=== PATIENT | female | born 1940 | race Caucasian/White ===

== ENCOUNTER 2017-03-11 13:15 | Inpatient (IN) | payer MEDICARE, BC ==
[2017-03-11 13:40] VITALS: BMI 25.8
[2017-03-13] MEDS ORDERED: Midazolam HCl 2 mg/2 ml Vial ONE (06:31)
[2017-03-13] MEDS ORDERED: Lidocaine 1% (PF) 30 ML VIAL ONE ×2 (06:32→07:25)
[2017-03-13] MEDS ORDERED: Fentanyl 100 MCG/2 ML VIAL ONE ×2 (06:32→07:24)
[2017-03-13] MEDS ORDERED: Ropivacaine 0.2% HCl/PF 20 ML ONE (06:57)
[2017-03-13] MEDS ORDERED: Ropivacaine 0.2% 550 ML 550 ML NERVE BLCK SCH (07:12)
[2017-03-13] MEDS ORDERED: Ondansetron HCl/PF 4 MG/2 ML Vial IVP PRN ×2 (07:12→10:14)
[2017-03-13] MEDS ORDERED: traMADol HCl 50 MG TAB PO PRN ×2 (07:12)
[2017-03-13] MEDS ORDERED: Zolpidem Tartrate 5 MG TAB PO PRN (07:12)
[2017-03-13] MEDS ORDERED: Promethazine HCl 25 MG/ML VIAL IM PRN ×2 (07:12→10:14)
[2017-03-13] MEDS ORDERED: Ketorolac Tromethamine 30 MG/ML VIAL IVP PRN (07:12)
[2017-03-13] MEDS ORDERED: Fentanyl 100 MCG/2 ML VIAL IV PRN (07:13)
[2017-03-13] MEDS ORDERED: methylPREDNISolone Acetate 40 mg/ml Vial ONE (07:25)
[2017-03-13] MEDS ORDERED: Lidocaine 1% PF 5 ML VIAL ONE (07:48)
[2017-03-13] MEDS ORDERED: Propofol 200 MG/20 ML VIAL ONE (07:48)
[2017-03-13] MEDS ORDERED: Ondansetron HCl/PF 4 MG/2 ML Vial ONE (07:48)
[2017-03-13] MEDS ORDERED: ePHEDrine/0.9% NaCl/PF SYRINGE 50 mg/10 ml ONE (07:48)
[2017-03-13] MEDS ORDERED: Glycopyrrolate 0.2 MG/ML 5 ML SYRINGE ONE (07:48)
[2017-03-13] MEDS ORDERED: Ketorolac Tromethamine 30 MG/ML VIAL ONE (07:48)
[2017-03-13] MEDS ORDERED: Milk Of Magnesia 30 ML UDCUP PO PRN (10:03)
[2017-03-13] MEDS ORDERED: Methocarbamol 1 GM/10 ML VIAL SLOW IVP PRN (10:03)
[2017-03-13] MEDS ORDERED: Bisacodyl 10 MG SUPP PR PRN (10:03)
[2017-03-13] MEDS ORDERED: Acetaminophen 325 MG TAB PO PRN (10:03)
[2017-03-13] MEDS ORDERED: Promethazine HCl 25 MG/ML VIAL SLOW IVP PRN (10:14)
[2017-03-13] MEDS ORDERED: Sodium Chloride 0.9% 100 ML ONE (10:18)
--- NOTE | 2017-03-13 13:01 | OP ---
DATE OF PROCEDURE: 03/13/2017 PREOPERATIVE DIAGNOSIS: Right shoulder glenohumeral osteoarthrosis. POSTOPERATIVE DIAGNOSES: Right shoulder glenohumeral osteoarthrosis. PROCEDURE PERFORMED: Right total shoulder replacement SURGEON: Tesfaye Carrion M.D. OIL FILTERS INSPECTOR: Nelson Holman M.D. BLOOD LOSS: 350 mL. ANESTHESIA: The patient had general anesthetic. She also had a block. IMPLANTS: Implants that we placed into the right shoulder, we used a Flex system from [employer], it is a flex 4C stem, the head was a 41 mm x 15 mm high offset head and we used a small 40 keeled glenoid. The glenoid was cemented. The stem was press fit. DISPOSITION: She did go to recovery room in stable condition. INDICATIONS: A 76-year-old female who has been having significant daily pain in the right shoulder and at this time, she wanted to have her shoulder replaced. DESCRIPTION OF PROCEDURE: After all appropriate consent forms were explained and signed, she was taken to the operating room and was given a general anesthetic. Once the level of anesthesia was appropriate, she was placed in modified beach chair position with all bony prominences well-padded. She was pulled off the side so the arm could be taken off the side of the bed. Berg bag was inflated to hold her in this position. The arm was then prepped and draped in standard surgical fashion. Incision was made down through skin with a 10 blade. Bovie was used to coagulate any brisk venous bleeding. Deltopectoral interval was found and a small strip of deltoid was taken medially with the cephalic vein. We then got down to our conjoined tendon. This was swept off the underlying subscapularis. A self-retaining retractor was applied. I did take my hand and made the space between the deltoid and the cuff to remove any adhesions. Once this was done, we opened up our bicipital groove, a significant amount of fluid was removed as well as some loose bodies. The biceps was tagged. The interval was opened up and the biceps was cut out of the joint. This would then be saved for performing a biceps tenodesis at the end of the case. At this time, the subscapularis was taken off using the Bovie as well as an osteotome to pulled off a small piece of bone for later repair, four #5 Ethibonds were placed through this for later repair. At this time, the subscapularis was dissected and freed up from the underlying capsule, a small capsulotomy was performed to make the subscapularis bouncy. Once this was done, we then placed a retractor into the glenohumeral joint and using external rotation, we were able to remove the capsule circumferentially from around the humeral head. We then placed retractors and made our humeral head cut. This was removed off the back table and was felt that it would probably be a 40 or 41 head. At this time, we then went about preparing our humerus by using our canal finder by sounding and then by broaching. We ended up with a 4 stem and once this was done, we used a planer to plane out our cut and we then placed the humeral head protector on top of this. We then went ahead and gained access to our glenoid placing [place] retractors, removed circumferentially soft tissue from around the glenoid and once we had good visualization of this, we drilled a hole in our central aspect. We then hand reamed and felt that this would be a size small glenoid. Prior to starting our glenoid preparation, we did use a small tunnel hawk guides and felt that a 40 mm would be appropriate. At this time, we then drilled our superior and inferior holes, connected these with the rongeur, punched and trialed our small glenoid. It sat nicely without rocking. This was removed. The area was thoroughly irrigated and dried. Cement was mixed on the back table. We then cemented in our keeled small glenoid. This was held in place until cement dried. All excess bone cement was removed. We then went and finished our head preparation, we trialed and felt a 41 x 15 mm high offset head would be appropriate. #7 was at the superior aspect. This whole trial system was removed. We drilled 4 holes, placed four #5 Ethibonds through them for a double row subscapularis repair. Final stem was implanted and impacted. The head was reduced one last time and at this time we confirmed that we had 50% posterior and inferior shuck with nice return to a resting position and the hand was able to put onto the belly without problems. At this time, we then performed our double row subscapularis repair using the previously placed sutures. We then closed our interval with a couple more Ethibond sutures. We thoroughly irrigated and dried. We used 2-0 Vicryl to close our deltopectoral interval, 2-0 Vicryl and gabi to close skin. A bulky sterile dressing was applied and at this time, the patient was awakened and taken to the recovery room in stable condition. All counts were correct at the end of the case. She received preoperative IV antibiotics. JAY JAY
[2017-03-13] MEDS ORDERED: FLU VACC TS2017-18 (>65YR) 0.5 ML SYRINGE IM ONE (13:45)
[2017-03-13] MEDS: Dextrose 5 %-0.45 % NaCl 1,000 ML IV SCH ×2 (15:06→16:00)
[2017-03-13] MEDS ORDERED: Vancomycin HCl 1 GM in Premix Bag 1 BAG IVPB SCH (18:00)
[2017-03-13] MEDS: Famotidine 20 MG TAB PO SCH (19:47)
[2017-03-13] MEDS ORDERED: traZODone HCl 50 MG TAB PO SCH (21:00)
[2017-03-13] MEDS ORDERED: Lisinopril 10 MG TAB PO SCH (21:00)
[2017-03-13] MEDS ORDERED: Loratadine 10 MG TAB PO SCH (21:00)
[2017-03-13] MEDS: HYDROcodone/Acetaminophen 7.5/325 mg Tablet PO PRN (23:10)
[2017-03-14] MEDS: HYDROcodone/Acetaminophen 7.5/325 mg Tablet PO PRN ×4 (04:55→17:43)
[2017-03-14] MEDS: Famotidine 20 MG TAB PO SCH (09:01)
[2017-03-14 15:25] VITALS: BP 152/77; TEMP 98.3
[2017-03-14] MEDS: Dextrose 5 %-0.45 % NaCl 1,000 ML IV SCH (17:45)
== END 2017-03-14 18:00 | disposition home or self-care (01) | DRG 483 ==
LOC: SURG A 03-13 05:51 → SCHOBSVTOIN 03-13 16:35
PROVIDERS: ADMIT Orthopaedic Surgery; ATTEND Orthopaedic Surgery
PROC: 0RRJ0JZ Replacement of Right Shoulder Joint with Synthetic Substitute, Open Approach (ICD-10-PCS; principal; 2017-03-13)
PROC: 3E0T3BZ Introduction of Anesthetic Agent into Peripheral Nerves and Plexi, Percutaneous Approach (ICD-10-PCS; 2017-03-13)
DX: M19.011 Primary osteoarthritis, right shoulder (principal); I10 Essential (primary) hypertension; M65.331 Trigger finger, right middle finger
CPT/HCPCS: 80048; 81001; 85027; 85610; 85730; 86850; 86900; 86901; 87081; 93005; 93010; A4306; C1713; G8978-GP-CK; G8979-GP-CI; G8987-GO-CJ; G8988-GO-CJ; G8989-GO-CJ; J1030; J1885; J2001; J2250; J2405; J2704; J2795; J3010; J3370; J7050

== ENCOUNTER 2017-03-11 13:22 | Outpatient (CLI) | payer MEDICARE, BC ==
[2017-03-11 15:21] LABS: Hematocrit 39.9 % (36.0-47.0); Mean Platelet Volume 6.3 fL (7.4-10.4); Red Blood Cell (RBC) Count 4.03 mill/uL (4.20-5.40); White Blood Cell (WBC) Count 5.4 thou/uL (4.8-10.8)
[2017-03-11 15:30] LABS: PTT 37.6 SEC (22.9-36.1); Prothrombin Time 12.7 SEC (12.0-14.7)
[2017-03-11 15:34] LABS: Bilirubin Negative (Negative); Blood, Urine Moderate (Negative); Glucose, Urine (Dipstick) Negative (Negative); Ketone, Urine Negative (Negative); Nitrite Negative (Negative); Protein, Urine (Dipstick) Negative (Neg-Trace)
[2017-03-11 15:38] LABS: Bacteria/HPF None Seen HPF (None Seen); Hyaline Casts/LPF 0-3 HYALINE CAST LPF (0-3 Hyaline); Squamous Epithelial 0-3 HPF (0-3); WBC/HPF 0-3 HPF (0-3)
[2017-03-11 15:47] LABS: Anion Gap 12 mmol/L (10-20); BUN (Urea Nitrogen) 13 mg/dL (9.8-20.1); Calc. Creatinine Clearance 0 mL/min (70-130); Calcium 9.2 mg/dL (7.8-10.44); Carbon Dioxide 29 mmol/L (23-31); Chloride 105 mmol/L (98-107); Estimated GFR-MDRD 81
== END 2017-03-11 13:23 | disposition home or self-care (01) ==
LOC: LABBT 13:22
PROVIDERS: ATTEND Orthopaedic Surgery
DX: Z01.818 Encounter for other preprocedural examination (principal); M19.011 Primary osteoarthritis, right shoulder
CPT/HCPCS: 80048; 81001; 85027; 85610; 85730; 86850; 86900; 86901; 87081; 93005; 93010